=== PATIENT | male | born 1955 | race Two or more races ===

== ENCOUNTER 2024-01-26 21:16 | Emergency (ER) | payer BC, MEDICAID ==
[~2024-01-26] VITALS: Ht 177.8 cm; Wt 154.5 kg
[~2024-01-26 21:16] MED LIST: [UNRECOGNIZED DRUG - REMARK]
[2024-01-26 21:52] VITALS: TEMP 97.4
[2024-01-26 21:55] VITALS: PULSE 64; RESP 15; O2SAT 93
[2024-01-26 22:14] LABS: Basophils # (auto) 0.1 10 ^3/uL (0-0.2); Basophils % (auto) 1.1 % (0.0-2.0); Eosinophils # (auto) 0.2 10 ^3/uL (0-0.8); Hematocrit 48.2 % (41.0-53.0); Hemoglobin 16.5 g/dL (13.5-17.5); Lymphocytes # (auto) 1.8 10 ^3/uL (0.4-5.4); Lymphocytes % (auto) 18.7 % (10.0-50.0); Mean Corpuscular Hemoglobin 30.2 pg (28.0-32.0); Mean Corpuscular Hgb Conc. 34.2 g/dL (32.0-36.0); Mean Corpuscular Volume 88.3 fL (80.0-100.0); Monocytes # (auto) 0.7 10 ^3/uL (0-1.3); Monocytes % (auto) 7.7 % (0.0-12.0); Neutrophils # (auto) 6.6 10 ^3/uL (1.6-8.6); Neutrophils % (auto) 70.5 % (37.0-80.0); Nucleated Red Blood Cells % 0.4 %; Platelet Count (auto) 208 10^3/uL (140-450); Red Blood Cells 5.46 10^6/uL (4.5-5.90); Red Cell Distribution Width 14.3 % (11.8-14.3); White Blood Cell 9.4 10^3/uL (4.4-10.8)
[2024-01-26 22:29] LABS: INR 1.03 (0.9-1.15); Partial Thromboplastin Time 26.4 SEC (24.5-34.5); Prothrombin Time 10.9 sec (9.3-11.8)
[2024-01-26 22:32] LABS: Alanine Aminotransferase 16 U/L (7-40); Alkaline Phosphatase 112 U/L (46-116); Anion Gap 9 (5-15); Aspartate Aminotransferase 16 U/L (13-40); BUN/Creatinine Ratio 13.4 (10.0-20.0); Blood Urea Nitrogen 44 mg/dL (9-23); Calcium 9.6 mg/dL (8.7-10.4); Carbon Dioxide 25 mmol/L (20-30); Chloride 102 mmol/L (98-107); Glucose 125 mg/dL (74-106); Potassium 4.1 mmol/L (3.5-5.1); Sodium 136 mmol/L (136-145)
[2024-01-26 22:33] LABS: Albumin 4.6 g/dL (3.2-4.8); Bilirubin, Total 0.7 mg/dL (0.2-1.0); Total Protein 7.9 g/dL (5.7-8.2)
[2024-01-26] MEDS: SODIUM CHLORIDE 0.9% 500 ML IV ONE (23:13)
[2024-01-27] MEDS: ACETAMINOPHEN 325 MG TAB PO ONE (00:20)
[2024-01-27 04:02] VITALS: BP 102/52; PULSE 76; RESP 14; O2SAT 93
== END 2024-01-27 04:45 | disposition home or self-care (01) ==
LOC: EDBD 21:16 → ER 21:27 → EDBD 21:27 → ER 01-27 04:45
DX: I95.9 Hypotension, unspecified (principal); T46.5X1A Poisoning by other antihypertensive drugs, accidental (unintentional), initial encounter; I11.0 Hypertensive heart disease with heart failure; I50.9 Heart failure, unspecified; E78.5 Hyperlipidemia, unspecified; F15.90 Other stimulant use, unspecified, uncomplicated; Z98.890 Other specified postprocedural states; Z79.899 Other long term (current) drug therapy; Y92.89 Other specified places as the place of occurrence of the external cause
CPT/HCPCS: 36415; 71045; 80053; 84484; 85025; 85610; 85730; 93005